=== PATIENT | female | born 1945 | race African-American/Black ===

== ENCOUNTER 2020-12-28 10:50 | Observation (INO) ==
[2020-12-28] MEDS ORDERED: SODIUM CHLORIDE 0.9% 1,000 ML IV STA (12:02)
[2020-12-28 12:55] LABS: Basophils % 0.3 % (0.0-0.8); Eosinophils % 0.3 % (0.00-10.9); Hematocrit 39.2 VOL% (35.7-47.0); Immature Granulocytes % 0.3 %; Immature Granulocytes Absolute 0.02 #; Lymphocytes # 1.9 10*3/uL (1.4-4.0); Lymphocytes % 33.3 % (21.3-54.2); Mean Corpuscular HGB Conc 33.2 GM/DL (32-36); Mean Corpuscular Volume 86.9 FL (87-102); Mean Platelet Volume 10.1 FL (9.6-12.0); Monocytes % 10.8 % (1.7-12.7); Platelet Count 353 T/CUMM (130-400); Red Blood Count 4.51 MC/CUMM (3.8-5.5); Red Cell Distribution Width 14.3 % (9.3-17.3); White Blood Count 5.8 T/CUMM (4-12)
[2020-12-28 13:07] LABS: PT Patient Result 11.6 SECS (10.5-12.0); Partial Thromboplastin Time 29.4 SECS (23.9-33.8)
[2020-12-28 13:17] LABS: Alanine Aminotransferase 14 U/L (13-56); Albumin 3.3 G/DL (3.4-5.0); Alkaline Phosphatase 64 U/L (45-117); Aspartate Amino Transferase 15 U/L (0-37); Blood Urea Nitrogen 21 MG/DL (7-18); Calcium 9.2 MG/DL (8.5-10.1); Carbon Dioxide 23 MMOL/L (21-32); Estimated Glom Filtration Rate 60 ML/MIN; Glucose 102 MG/DL (74-106); Osmolality,Calculated 283.3 MOS/KG (273-304); Potassium 3.3 MMOL/L (3.5-5.1); Sodium 141 MMOL/L (136-145); Total Protein 7.8 G/DL (6.4-8.2)
[2020-12-28 13:20] LABS: Thyroid Stimulating Hormone 3.54 uIU/ml (0.358-3.74)
[2020-12-28] MEDS ORDERED: hydrALAZINE 20 MG/1 ML VIAL IV PRN (14:30)
[2020-12-28] MEDS ORDERED: LACTULOSE 20 GM/30 ML UDCUP PO PRN (14:30)
[2020-12-28] MEDS ORDERED: DEXTROSE 50% 25 GM/50 ML VIAL IV PRN (14:30)
[2020-12-28] MEDS ORDERED: ACETAMINOPHEN 325 MG TABLET PO PRN (14:30)
[2020-12-28] MEDS ORDERED: GLUCAGON 1 MG VIAL IM PRN (14:30)
[2020-12-28] MEDS ORDERED: ENOXAPARIN 40 MG/0.4 ML SYRINGE SUBCUT SCH (14:30)
[2020-12-28] MEDS ORDERED: ONDANSETRON 4 MG/2 ML VIAL IV PRN (14:30)
[2020-12-28] MEDS ORDERED: ZALEPLON 5 MG CAPSULE PO PRN (14:30)
[2020-12-28] MEDS ORDERED: POTASSIUM CHLORIDE 20 MEQ TABLET PO ONE (14:35)
[2020-12-28] MEDS: ASPIRIN 325 MG TABLET PO SCH (15:13)
[2020-12-28] MEDS: SODIUM CHLORIDE 0.9% 1,000 ML IV SCH (16:05)
[2020-12-28] MEDS: INSULIN LISPRO 100 UNIT/ML SUBCUT SCH ×2 (17:05→20:07)
[2020-12-29 04:54] LABS: Basophils % 0.6 % (0.0-0.8); Eosinophils # 0.1 10*3/uL (0.0-0.87); Eosinophils % 1.1 % (0.00-10.9); Hematocrit 37.6 VOL% (35.7-47.0); Hemoglobin 11.8 GM/DL (12.0-16.0); Immature Granulocytes % 0.2 %; Immature Granulocytes Absolute 0.01 #; Lymphocytes # 2.7 10*3/uL (1.4-4.0); Mean Corpuscular HGB Conc 31.4 GM/DL (32-36); Mean Corpuscular Volume 88.9 FL (87-102); Mean Platelet Volume 10.2 FL (9.6-12.0); Monocytes % 10.6 % (1.7-12.7); Neutrophils % 36.5 % (38.7-73.9); Platelet Count 328 T/CUMM (130-400); Red Blood Count 4.23 MC/CUMM (3.8-5.5); Red Cell Distribution Width 14.4 % (9.3-17.3); White Blood Count 5.4 T/CUMM (4-12)
[2020-12-29 05:21] LABS: Calcium 8.8 MG/DL (8.5-10.1); Osmolality,Calculated 284.8 MOS/KG (273-304); Potassium 3.6 MMOL/L (3.5-5.1); Risk Ratio 3.04; VLDL Cholesterol 18.4 MG/DL
[2020-12-29 06:54] LABS: Eosinophils 1 % (0-10); Hypochromasia 1+; Lymphocytes 58 % (20-55); Microcytosis 1+; Platelet Estimate Normal; Segmented Neutrophils 29 % (50-85); Total Cells Counted 100
[2020-12-29] MEDS: SODIUM CHLORIDE 0.9% 1,000 ML IV SCH (07:22)
[2020-12-29] MEDS ORDERED: POTASSIUM CHLORIDE 20 MEQ TABLET PO ONE (07:50)
[2020-12-29] MEDS: PANTOPRAZOLE 40 MG TABLET PO SCH (08:35)
[2020-12-29] MEDS: ASCORBIC ACID 500 MG TABLET PO SCH ×2 (08:35→21:21)
[2020-12-29] MEDS: ASPIRIN 325 MG TABLET PO SCH (08:35)
[2020-12-29] MEDS: METOPROLOL SUCCINATE XL 25 MG TABLET PO SCH ×2 (08:35→21:22)
[2020-12-29] MEDS ORDERED: MAGNESIUM SULF RIDER 2 GM/50 ML PREMIX IV ONE (09:55)
[2020-12-29] MEDS: APIXABAN 5 MG TABLET PO SCH ×2 (10:20→21:21)
[2020-12-29] MEDS: LOSARTAN 25 MG TABLET PO SCH (10:20)
[2020-12-29] MEDS: INSULIN LISPRO 100 UNIT/ML SUBCUT SCH ×4 (10:37→21:20)
[2020-12-29] MEDS ORDERED: SIMVASTATIN 20 MG TABLET PO SCH (21:00)
[2020-12-30 05:23] LABS: Basophils % 0.6 % (0.0-0.8); Eosinophils # 0.1 10*3/uL (0.0-0.87); Eosinophils % 1.5 % (0.00-10.9); Hematocrit 34.6 VOL% (35.7-47.0); Immature Granulocytes % 0.2 %; Immature Granulocytes Absolute 0.01 #; Lymphocytes # 2.3 10*3/uL (1.4-4.0); Lymphocytes % 47.9 % (21.3-54.2); Mean Corpuscular HGB Conc 31.8 GM/DL (32-36); Mean Corpuscular Volume 89.6 FL (87-102); Monocytes % 11.1 % (1.7-12.7); Neutrophils % 38.7 % (38.7-73.9); Platelet Count 294 T/CUMM (130-400); Red Blood Count 3.86 MC/CUMM (3.8-5.5); Red Cell Distribution Width 14.4 % (9.3-17.3); White Blood Count 4.7 T/CUMM (4-12)
[2020-12-30 05:54] LABS: Calcium 8.9 MG/DL (8.5-10.1); Osmolality,Calculated 282.1 MOS/KG (273-304); Potassium 3.6 MMOL/L (3.5-5.1)
[2020-12-30] MEDS ORDERED: POTASSIUM CHLORIDE 20 MEQ TABLET PO ONE (07:48)
[2020-12-30] MEDS: INSULIN LISPRO 100 UNIT/ML SUBCUT SCH ×2 (07:55→12:39)
[2020-12-30] MEDS ORDERED: ASPIRIN EC 81 MG TABLET PO SCH (09:00)
[2020-12-30] MEDS: PANTOPRAZOLE 40 MG TABLET PO SCH (09:01)
[2020-12-30] MEDS: METOPROLOL SUCCINATE XL 25 MG TABLET PO SCH (09:01)
[2020-12-30] MEDS: APIXABAN 5 MG TABLET PO SCH (09:01)
[2020-12-30] MEDS: ASCORBIC ACID 500 MG TABLET PO SCH (09:02)
[2020-12-30] MEDS: LOSARTAN 25 MG TABLET PO SCH (09:02)
[2020-12-30 12:12] VITALS: BP 163/84
== END 2020-12-30 13:34 | disposition home or self-care (01) ==
LOC: N.ED 10:50 → N.EDINP 10:50 → N.TELEN 15:12
PROVIDERS: ADMIT Internal Medicine; ATTEND Internal Medicine